=== PATIENT | male | born 1995 | race Caucasian/White ===

== ENCOUNTER 2016-09-11 01:44 | Emergency (ER) | payer OTHER | END 2016-09-11 02:51 | disposition home or self-care (01) | LOC: ER 01:44 | DX: H66.92 Otitis media, unspecified, left ear (principal); J06.9 Acute upper respiratory infection, unspecified; R11.0 Nausea; F17.200 Nicotine dependence, unspecified, uncomplicated; Z98.890 Other specified postprocedural states; F90.0 Attention-deficit hyperactivity disorder, predominantly inattentive type | CPT/HCPCS: 96372; 99284; A9270-GY ==